=== PATIENT | male | born 1965 | race Caucasian/White ===

== ENCOUNTER 2019-01-11 06:29 | Emergency (ER) | payer BC ==
[2019-01-11] MEDS ORDERED: Ketorolac INJ* 60 MG/2 ML VIAL IM ONE (06:57)
--- NOTE | 2019-01-11 07:04 | ED ---
Back Pain - HPI Summary HPI Summary: Pt. is a 53 y.o male who presents to the ER for left sided low back pain x several days. 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 Pt. states a few days ago he slipped and pulled low back. He denies falling to ground at that time. Pt. states the next day he was lifting heavy bags and back pain became worse. Pain is located to left low back. He denies radicular pain, numbness, tingling, weakness, urinary sxs, CP, SOB, bowel or bladder incontinence or retention. Pt. states he took tylenol last night. Sxs are mild in severity. Movement makes sxs worse. Nothing makes sxs better. - History of Current Complaint Chief Complaint: EDBackInjuryPain Stated Complaint: BACK PAIN Time Seen by Provider: 01/11/19 06:39 Hx Obtained From: Patient Pain Intensity: 10 - Allergies/Home Medications Allergies/Adverse Reactions: Allergies Allergy/AdvReac Type Severity Reaction Status Date / Time No Known Allergies Allergy Verified 01/11/19 06:41 PMH/Surg Hx/FS Hx/Imm Hx Previously Healthy: Yes Endocrine/Hematology History: Reports: Hx Diabetes - Type 2 Denies: Hx Thyroid Disease Cardiovascular History: Reports: Hx Hypertension Denies: Hx Pacemaker/ICD Respiratory History: Denies: Hx Asthma, Hx Chronic Obstructive Pulmonary Disease (COPD) GI History: Denies: Hx Ulcer Sensory History: Denies: Hx Hearing Aid Psychiatric History: Denies: Hx Panic Disorder - Surgical History Surgery Procedure, Year, and Place: hernia in 1997 Infectious Disease History: No Infectious Disease History: Denies: Hx Clostridium Difficile, Hx Hepatitis, Hx Human Immunodeficiency Virus (HIV), Hx of Known/Suspected MRSA, Hx Shingles, Hx Tuberculosis, Hx Known/ Suspected VRE, Hx Known/Suspected VRSA, History Other Infectious Disease, Traveled Outside the [place] in Last 30 Days - Family History Known Family History: Positive: Hypertension, Diabetes - Social History Occupation: Employed Full-time Lives: With Family Alcohol Use: Rare Substance Use Type: Reports: None Smoking Status (MU): Never Smoked Tobacco Review of Systems Constitutional: Negative Cardiovascular: Negative Respiratory: Negative Gastrointestinal: Negative Genitourinary: Negative Positive: Other - left low back pain Neurological: Negative All Other Systems Reviewed And Are Negative: Yes Physical Exam Triage Information Reviewed: Yes Vital Signs On Initial Exam: Initial Vitals Pulse Pulse Ox 107 96 01/11/19 06:36 01/11/19 06:36 Vital Signs Reviewed: Yes Appearance: Positive: Pain Distress - Pt. sitting on side of bed appears uncomfortable but nontoxic. Tearful at times. Skin: Positive: Warm, Dry Head/Face: Positive: Normal Head/Face Inspection Eyes: Positive: Normal, EOMI Neck: Positive: Supple Respiratory/Lung Sounds: Positive: Clear to Auscultation Cardiovascular: Positive: Normal, RRR Musculoskeletal: Positive: Other - 5/5 strength in bilateral LEs. No CVA tenderness. Pain just above left SI joint. No midline tenderness. Neurological: Positive: Normal, CN Intact II-III Diagnostics - Vital Signs Vital Signs Temp Pulse Resp BP Pulse Ox 01/11/19 06:37 97.4 F 106 22 167/102 93 01/11/19 06:36 107 96 - Laboratory Lab Statement: Any lab studies that have been ordered have been reviewed, and results considered in the medical decision making process. Back Pain Course/Dx - Course Course Of Treatment: Pt. presenting for low back pain after a slip and heavy lifting. He has no neuro deficits on exam or evidence of cauda equina sxs. Afebrile. BP elevated--pt. states he did not take his meds yet today. No midine pain or radicular sxs, no imaging ordered. Suspect muscular in nature. Pt. given a dose of toradol in ED. Rx for flexeril and naproxen. Advised to apply warm compress, gentle stretching and massage. Avoid heavy lifting. Close f.u with PCP and return to eR if sxs change or worsen. PT understands and agrees with plan. - Diagnoses Differential Diagnosis/HQI/PQRI: Positive: Arthritis, Herniated Disc, Osteomyelitis, Renal Colic, Strain, Sprain Provider Diagnoses: Muscle spasm, Lumbar strain Discharge - Sign-Out/Discharge Documenting (check all that apply): Patient Departure Patient Received Moderate/Deep Sedation with Procedure: No - Discharge Plan Condition: Good Disposition: HOME Prescriptions: Cyclobenzaprine TAB* [Flexeril 10 MG TAB*] 10 mg PO TID PRN #12 tab PRN Reason: Pain Naproxen [Naproxen 500 mg tab] 500 mg PO BID #20 tablet Patient Education Materials: Low Back Strain (ED), Muscle Spasm (ED) Forms: *Work Release Referrals: Gentry Hadley MD [Primary Care Provider] - Additional Instructions: Schedule a close follow up appointment with your PCP Take medication as directed Apply warm compresses to back Gentle massage and stretching Avoid heavy lifting Take all of your scheduled morning medications as soon as your return home Return to ER if symptoms change or worsen - Billing Disposition and Condition Condition: GOOD Disposition: Home
[2019-01-11 07:27] VITALS: BP 142/102
== END 2019-01-11 07:27 | disposition home or self-care (01) ==
LOC: ED 06:29
DX: M62.830 Muscle spasm of back (principal); S39.012A Strain of muscle, fascia and tendon of lower back, initial encounter; W18.40XA Slipping, tripping and stumbling without falling, unspecified, initial encounter; Y92.9 Unspecified place or not applicable
CPT/HCPCS: 96372; 99282; J1885

== ENCOUNTER 2019-04-15 14:47 | Emergency (ER) | payer BC ==
[2019-04-15 15:33] VITALS: BP 172/97
--- NOTE | 2019-04-15 17:11 | UC ---
Dental HPI - HPI Summary HPI Summary: 53 y/o male presents to the urgent care c/o dental pain and mild swelling in his upper jaw since 04/10/2019. He has appt w/ his dentist next week to have them pull out. Pt w/ PMHX of DM type II. Pain is 7/10 sharp w/ chewing. He has been taken Ibudone PO which she takes for her Chronic back pain to alleviate symptoms. Pt denies fever, trismus, SULLIVAN, dizziness, sore throat, abdominal pain, N/V/D, SOB, chest pain. - History of Current Complaint Chief Complaint: UCDentalProblem Stated Complaint: DENTAL PAIN Time Seen by Provider: 04/15/19 16:47 Hx Obtained From: Patient Onset/Duration: Gradual Onset, Lasting Days - 6 days, Still Present Severity: Moderate Pain Intensity: 7 Pain Scale Used: 0-10 Numeric Aggravating Factor(s): Chewing Alleviating Factor(s): Other (see comments) - Ibudone Related History: Swelling - mild on Rt upper jaw - Allergies/Home Medications Allergies/Adverse Reactions: Allergies Allergy/AdvReac Type Severity Reaction Status Date / Time No Known Allergies Allergy Verified 04/15/19 15:33 PMH/Surg Hx/FS Hx/Imm Hx Previously Healthy: Yes Endocrine History: Diabetes Cardiovascular History: Hypertension - Surgical History Surgical History: Yes Surgery Procedure, Year, and Place: hernia in 1997 - Family History Known Family History: Positive: Hypertension, Diabetes - Social History Occupation: Employed Full-time Lives: With Family Alcohol Use: Rare Substance Use Type: None Smoking Status (MU): Never Smoked Tobacco - Immunization History Most Recent Influenza Vaccination: season Review of Systems All Other Systems Reviewed And Are Negative: Yes Constitutional: Positive: Negative Skin: Positive: Negative Eyes: Positive: Negative ENT: Positive: Dental Pain - upper jaw Respiratory: Positive: Negative Cardiovascular: Positive: Negative Gastrointestinal: Positive: Negative Genitourinary: Positive: Negative Motor: Positive: Negative Neurovascular: Positive: Negative Musculoskeletal: Positive: Negative Neurological: Positive: Negative Psychological: Positive: Negative Is Patient Immunocompromised?: No Physical Exam - Summary Physical Exam Summary: Vital Signs Reviewed: Yes General: Well-Appearing, Well-Nourished male sitting in the examining table w/ o any respiratory or pain distress Eyes: Positive: Conjunctiva Clear - PERRLA, EOMI, ENT: Positive: Normal ENT inspection, Hearing grossly normal, Pharynx normal, TMs normal - B/L external ear canals clear,. Negative: Tonsillar swelling, Tonsillar exudate, Trismus Dental: Positive: Gross Decay/Caries on molars #12-13 w/ gingival swelling and erythema, tender to percussion. involves tissue surrounding theses molars, w/ positive anterior Cervical Lymphadenopathy. Neck: Positive: Supple Respiratory: Positive: Chest non-tender, Lungs clear, Normal breath sounds, No respiratory distress Cardiovascular: Positive: RRR, No Murmur, Pulses Normal, Brisk Capillary Refill Abdomen Description: Positive: Nontender, No Organomegaly, Soft. Negative: CVA Tenderness (R), CVA Tenderness (L) Bowel Sounds: Positive: Present Musculoskeletal: Positive: Strength Intact, ROM Intact, No Edema Neurological Exam: Normal Psychological Exam: Normal Skin Exam: Normal Triage Information Reviewed: Yes Vital Signs: Initial Vital Signs Temp 98.3 F 04/15/19 15:27 Pulse 97 04/15/19 15:27 Resp 16 04/15/19 15:27 BP 172/97 04/15/19 15:27 Pulse Ox 97 04/15/19 15:27 Dental Complaint Course/Dx - Course Course Of Treatment: 53 y/o male presents to the urgent care c/o dental pain and mild swelling in her upper jaw since 04/10/2019. He has appt w/ his dentist next week to have them pull out. Pt w/ PMHX of DM type II. Pain is 7/10 sharp w/ chewing. He has been taken Ibudone PO which she takes for her Chronic back pain to alleviate symptoms. Pt denies fever, trismus, SULLIVAN, dizziness, sore throat, abdominal pain, N/V/D, SOB, chest pain. Pt with dental abscess on RT side upper jaw examination. Pt Rx Amoxicillin PO and advised to continue taking Ibudone PO for pain. Pt strongly advised to f/u with Dentist as soon as possible further evaluation and treatment. Pt's BP is elevated today advised to decrease salt in diet, monitor BP and f/u with PCP for further management. Pt understood and agreed with plan of care. Left the clinic ambulating. - Differential Dx/Diagnosis Differential Diagnosis/Dx: Dental Abscess, Dental Caries Provider Diagnosis: Dental abscess, Dental caries, Uncontrolled hypertension Discharge - Sign-Out/Discharge Documenting (check all that apply): Patient Departure - d/C home All imaging exams completed and their final reports reviewed: No Studies - Discharge Plan Condition: Stable Disposition: HOME Prescriptions: Amoxicillin PO (*) [Amoxicillin 500 MG CAP*] 500 mg PO TID #30 cap Patient Education Materials: Dental Abscess (ED), Low-Sodium Diet (ED) Referrals: Gentry Hadley MD [Primary Care Provider] - 2 Days Additional Instructions: 1-Please take full course of antibiotic to avoid resistance. Take yogurts w/ probiotics or Cuturelle to protect your GI system 2- Continue taken Ibudone PO after meals to alleviate pain . 3- F/u with your Dentist or Dental List provided as soon as possible for further treatment. 4- If symptoms do not improve or worsen please f/u with your PCP in 2-3 days for further evaluation and treatment 5-Your BP is elevated today. Please take your BP medications and decrease salt in your diet, monitor BP and if it continues to be elevated please f/u with your PCP for further management. If you develop chest pain, dizziness, visual disturbances, SOB, or severe SULLIVAN please go immediately to the ER for further management - Billing Disposition and Condition Condition: STABLE Disposition: Home
== END 2019-04-15 17:23 | disposition home or self-care (01) ==
LOC: UCEAST 14:47
DX: K04.7 Periapical abscess without sinus (principal); K02.9 Dental caries, unspecified; I10 Essential (primary) hypertension
CPT/HCPCS: 99212; G0463

== ENCOUNTER 2019-11-25 15:24 | Emergency (ER) | payer BC ==
--- NOTE | 2019-11-25 17:42 | UC ---
Lower Extremity/Ankle HPI - HPI Summary HPI Summary: 54-year-old male comes in with a chief complaint of right heel pain. It started about a month ago. Pains right at the posterior aspect of the heel with the Achilles insertion. Pains worse with plantar flexion and dorsiflexion. No loss of strength or range of motion. Patient does have diabetes and he does have decreased sensation chronically on his feet. Patient has not taken any nonsteroidal anti-inflammatories. He has a history of GERD. He is not on any antacid medicines. - History of Current Complaint Chief Complaint: UCLowerExtremity Stated Complaint: FOOT PAIN Time Seen by Provider: 11/25/19 17:40 Pain Intensity: 8 - Allergies/Home Medications Allergies/Adverse Reactions: Allergies Allergy/AdvReac Type Severity Reaction Status Date / Time No Known Allergies Allergy Verified 11/25/19 16:00 Home Medications: Home Medications Dulaglutide [Trulicity] 0.75 mg SQ WEEKLY 11/25/19 [History Confirmed 11/25/19] PMH/Surg Hx/FS Hx/Imm Hx Previously Healthy: Yes Endocrine History: Diabetes Cardiovascular History: Hypertension GI/ History: Gastroesophageal Reflux - Surgical History Surgical History: Yes Surgery Procedure, Year, and Place: hernia in 1997 - Family History Known Family History: Positive: Hypertension, Diabetes - Social History Alcohol Use: Occasionally Substance Use Type: Marijuana Substance Use Comment - Amount & Last Used: daily Smoking Status (MU): Never Smoked Tobacco - Immunization History Most Recent Influenza Vaccination: season Review of Systems All Other Systems Reviewed And Are Negative: Yes Constitutional: Positive: Negative Skin: Positive: Negative Eyes: Positive: Negative ENT: Positive: Negative Respiratory: Positive: Negative Cardiovascular: Positive: Negative Gastrointestinal: Positive: Negative Motor: Positive: Negative Neurovascular: Positive: Negative Musculoskeletal: Positive: Other: - SEE HPI Neurological: Positive: Negative Psychological: Positive: Negative Is Patient Immunocompromised?: No Physical Exam Triage Information Reviewed: Yes Appearance: Well-Appearing, No Pain Distress, Well-Nourished Vital Signs: Initial Vital Signs Temp 98.1 F 11/25/19 15:55 Pulse 83 11/25/19 15:55 Resp 18 11/25/19 15:55 BP 191/93 11/25/19 15:55 Pulse Ox 98 11/25/19 15:55 Vital Signs Reviewed: Yes Eye Exam: Normal Eyes: Positive: Conjunctiva Clear Neck: Positive: Supple Respiratory: Positive: No respiratory distress Musculoskeletal: Positive: Other: - Right ankle is tender to palpation at the Achilles inserts of the calcaneus. Is nontender over the malleoli. Normal capillary refill. Normal dorsalis pedis posterior tibial pulses. Patient does report decrease generalized sensation of the foot which he reports is chronic. Patient has full range of motion of the ankle with full strength to include plantarflexion and dorsiflexion. Neurological: Positive: Alert Psychological: Positive: Age Appropriate Behavior Skin Exam: Normal Lower Extremity Course/Dx - Course Course Of Treatment: Rubber Cutter: Jean Pierre Lehman Daniel ([id number]) Forest Fire Prevention Manager: PEYTON ( NUANCE) Report Date: 11/25/2019 17:12:00 Report Status: Final ====== Start of Report Content Patient Name: SHAYLA DAVIS Medical Record#: [id number] Ordering Physician: Wayne Jonas MD Acct.#: [id number] : Age: 54 Sex: M Location: [facility] Exam Date: 11/25/19 1649 ADM Status: REG ER Order Information: ANKLE RIGHT 3+VWS Accession Number: [id number] CPT: 80913 HISTORY: PAIN . COMPARISONS: October 31, 2018 VIEWS: 3, Frontal, lateral, and oblique views of the right ankle FINDINGS: BONE DENSITY: Normal. BONES: There is no displaced fracture. Again noted are large plantar and posterior calcaneal enthesophytes. JOINTS: There is osteoarthritis of the midfoot. There is osteoarthritis of the tibiotalar and fibulotalar articulation. ALIGNMENT: There is no dislocation. SOFT TISSUES: There is peripheral arterial calcification. OTHER FINDINGS: None. IMPRESSION: HEEL SPURS. OSTEOARTHRITIS. PERIPHERAL ARTERIAL DISEASE. NO ACUTE OSSEOUS INJURY. IF SYMPTOMS PERSIST, RECOMMEND REPEAT IMAGING. <Electronically signed by Jean Pierre Lehman MD in OV > 11/25/191708 Dictated By: Jean Pierre Lehman MD Dictated Date/Time: 1707 Transcribed Date/Time: 11/25/191707 Copy to: CC:Gentry Hadley MD; [facility]; Wayne Jonas MD Imaging - [facility] Imaging - [facility] Imaging - [facility] [address] [address] ph [phone]) ph ([phone]) ph ([phone]) End of Report Content I discussed the x-rays with the patient. The x-ray and the exam is consistent with Achilles tendinitis. The Achilles tendon is intact to exam. In clinic patient placed and a cam boot by nursing patient and her vascular intact after placement. He will ice it's about to start him on an antacid medicine and also naproxen and he's got a follow-up with either sports medicine or orthopedics. - Differential Dx/Diagnosis Provider Diagnosis: Achilles tendinitis, right leg, GERD (gastroesophageal reflux disease) Discharge ED - Sign-Out/Discharge Documenting (check all that apply): Patient Departure All imaging exams completed and their final reports reviewed: Yes - Discharge Plan Condition: Stable Disposition: HOME Prescriptions: Naproxen Sodium [Naproxen ER 500 MG TAB] 500 mg PO BID #20 tab Omeprazole CAP (NF) [Prilosec CAP* 20 MG] 20 mg PO BID #30 mirna. Patient Education Materials: Achilles Tendinitis (ED), Gastroesophageal Reflux Disease (ED) Forms: *Work Release Referrals: Gentry Hadley MD [Primary Care Provider] - Ace Sears MD [Medical Doctor] - [facility] [Provider Group] Additional Instructions: FOLLOW UP WITH ORTHOPEDICS OR SPORTS MEDICINE. GET REEVALUATED SOONER IF NOT IMPROVED OR WORSE OR ANY QUESTIONS OR CONCERNS. - Billing Disposition and Condition Condition: STABLE Disposition: Home
[2019-11-25 18:24] VITALS: BP 165/100
== END 2019-11-25 18:13 | disposition home or self-care (01) ==
LOC: UCEAST 15:24
DX: M76.61 Achilles tendinitis, right leg (principal); K21.9 Gastro-esophageal reflux disease without esophagitis; M77.31 Calcaneal spur, right foot; M19.071 Primary osteoarthritis, right ankle and foot; I73.9 Peripheral vascular disease, unspecified; E11.9 Type 2 diabetes mellitus without complications; I10 Essential (primary) hypertension; Z79.899 Other long term (current) drug therapy
CPT/HCPCS: 99213; G0463

== ENCOUNTER 2019-12-10 15:56 | Emergency (ER) | payer BC ==
--- NOTE | 2019-12-10 16:24 | ED ---
HPI Chest Pain - HPI Summary HPI Summary: The patient is a 54 y/o male presenting to [facility] with a chief complaint of intermittent episodes of left anterior CP one week ago. He reports that he had experience an episode of stabbing pain in the left chest, most prevalent on . The night before, he felt like he was becoming ill with cold symptoms. He recently had an EKG revealing new RBBB. He has been seeing a business machine mechanic Dr. Valverde, who he has not been able to follow up with yet, but he had previously been seen for cardiac workup with negative results. He states that he feels well now without CP. He denies any cough. PMHx: DM, HTN. FHx: [place] in father age 52. Nonsmoker, occasional EtOH, marijuana use. Medications reviewed. Allergies noted. - History of Current Complaint Chief Complaint: EDChestPainROMI Time Seen by Provider: 12/10/19 16:08 Hx Obtained From: Patient Onset/Duration: Started Days Ago Timing: Intermittent - now resolved Initial Severity: Moderate Current Severity: None Pain Intensity: 0 Pain Scale Used: 0-10 Numeric Chest Pain Location: Left Anterior Chest Pain Radiates: No Character: Sharp/Stabbing Aggravating Factor(s): Nothing Alleviating Factor(s): Nothing Associated Signs and Symptoms: Positive: Chest Pain. Negative: Cough - Allergy/Home Medications Allergies/Adverse Reactions: Allergies Allergy/AdvReac Type Severity Reaction Status Date / Time No Known Allergies Allergy Verified 12/10/19 16:18 Home Medications: Home Medications Dulaglutide (NF) [Trulicity (NF)] 0.75 mg SUBCUT WEEKLY 12/10/19 [History Confirmed 12/10/19] Hydrocodone/Ibuprofen 1 tab PO QID PRN 12/10/19 [History Confirmed 12/10/19] Metformin ER (NF) 1,000 mg PO BID 12/10/19 [History Confirmed 12/10/19] Naproxen TAB* [Naprosyn 250 mg TAB*] 500 mg PO BID 12/10/19 [History Confirmed 12/10/19] dilTIAZem HCl [Dilt-Xr] 240 mg PO BEDTIME 12/10/19 [History Confirmed 12/10/19] glipiZIDE TAB.XL* [Glucotrol XL*] 10 mg PO BID 12/10/19 [History Confirmed 12/10] PMH/Surg Hx/FS Hx/Imm Hx Endocrine/Hematology History: Reports: Hx Diabetes - Type 2 Denies: Hx Thyroid Disease Cardiovascular History: Reports: Hx Hypertension Denies: Hx Pacemaker/ICD Respiratory History: Denies: Hx Asthma, Hx Chronic Obstructive Pulmonary Disease (COPD) GI History: Denies: Hx Ulcer Sensory History: Denies: Hx Hearing Aid Psychiatric History: Denies: Hx Panic Disorder - Surgical History Surgical History: Yes Surgery Procedure, Year, and Place: hernia in 1997 Infectious Disease History: No Infectious Disease History: Denies: Hx Clostridium Difficile, Hx Hepatitis, Hx Human Immunodeficiency Virus (HIV), Hx of Known/Suspected MRSA, Hx Shingles, Hx Tuberculosis, Hx Known/ Suspected VRE, Hx Known/Suspected VRSA, History Other Infectious Disease, Traveled Outside the [place] in Last 30 Days - Family History Known Family History: Positive: Cardiac Disease - father [place] age 52, Hypertension , Diabetes - Social History Alcohol Use: Occasionally Hx Substance Use: Yes Substance Use Type: Reports: Marijuana Substance Use Comment - Amount & Last Used: daily Hx Tobacco Use: No Smoking Status (MU): Never Smoked Tobacco Review of Systems Positive: Chest Pain - stabbing left anterior Negative: Cough All Other Systems Reviewed And Are Negative: Yes Physical Exam - Summary Physical Exam Summary: Constitutional: Well-developed, Obese, Alert. (-) Distressed Skin: Warm, Dry HENT: Normocephalic; Atraumatic Eyes: Conjunctiva normal Neck: Musculoskeletal ROM normal neck. (-) JVD, (-) Stridor, (-) Nuchal rigidity Cardio: Rhythm regular, rate normal, Heart sounds normal; Intact distal pulses; Radial pulses are 2+ and symmetric. (-) Murmur Pulmonary/Chest wall: Effort normal. (-) Respiratory distress, (-) Wheezes, (-) Rales Abd: Soft, (-) tenderness, (-) Distension, (-) Guarding, (-) Rebound Musculoskeletal: (-) Edema Lymph: (-) Cervical adenopathy Neuro: Alert, Oriented x3 Psych: Mood and affect Normal Triage Information Reviewed: Yes Vital Signs On Initial Exam: Initial Vitals Temp Pulse Resp BP Pulse Ox 98.3 F 92 18 213/89 99 12/10/19 16:04 12/10/19 16:04 12/10/19 16:04 12/10/19 16:04 12/10/19 16:04 Vital Signs Reviewed: Yes Procedures - Sedation Patient Received Moderate/Deep Sedation with Procedure: No Diagnostics - Vital Signs Vital Signs Temp Pulse Resp BP Pulse Ox 12/10/19 16:07 98.2 F 95 20 168/102 94 12/10/19 16:04 98.3 F 92 18 213/89 99 - Laboratory Result Diagrams: 12/10/19 16:16 12/10/19 16:16 Lab Statement: Any lab studies that have been ordered have been reviewed, and results considered in the medical decision making process. - Radiology CXR Radiology Interpretation Completed By: ED Physician Summary of Radiographic Findings: No acute abnormality. ED physician has reviewed and interpreted this report. Pending official read. - EKG 1557 Cardiac Rate: NL - 90 BPM EKG Rhythm: Sinus Rhythm EKG Comparison: No Significant Change - Compared to prior in 2007, new RBBB. Summary of EKG Findings: An EKG at 1557 reveals normal sinus rhythm at 90 BPM, RBBB. Compared to prior in 2007, new RBBB. ED physician has reviewed and interpreted this EKG. Re-Evaluation - Re-Evaluation First Eval Re-Evaluation Time: 17:45 Change: Improved - no recurrent chest pain, troponin negative Chest Pain Course/Dx - Course Course Of Treatment: 54-year-old male with a history of diabetes presenting with episode of chest pain now resolved. - Reporting URI-like symptoms, no cough. Chest x-ray w/o acute infiltrate. Labs with mild leukocytosis. Chest Pain DDX: The patient is well appearing, with stable vitals. Given the patient 's clinical presentation, highest on differential is atypical CP. Although less likely, differential also includes the following: --ACS: The initial EKG shows no ischemic changes, does have new RBBB since prior. The initial troponin is not elevated. Based on a HEART score of 3 the patient has a low risk (<2% chance) of major adverse cardiac event within the next 6 weeks. I explained to the patient that based on the work-up today, her risk of heart attack is low and that he/she will be discharged with outpatient follow-up. Strict return precautions were discussed regarding worsening chest pain, new / atypical pain, shortness of breath, or any other serious concerns. Patient endorsed understanding and has no questions at this time. --Pneumothorax: Equal breath sounds, story inconsistent since gradual onset of symptoms. CXR shows no evidence of pneumothorax. Unlikely. --Cardiac tamponade: The history and physical are not concerning for tamponade. No Pulsus Paradoxus, no tachypnea. Unlikely. --Mediastinitis or esophageal rupture: The history is not consistent , as the patient has had no recent history of significant wretching, instrumentation, or mediastinal surgeries. Unlikely. --Aortic dissection: The patient does not describe the classical tearing chest pain radiating into the back, and the CXR does not show mediastinal widening or other signs of aortic dissection. Unlikely. - Diagnoses Provider Diagnoses: Chest pain, RBBB Discharge ED - Sign-Out/Discharge Documenting (check all that apply): Patient Departure - Discharge Plan Condition: Stable Disposition: HOME Patient Education Materials: Chest Pain (ED) Referrals: Gentry Hadley MD [Primary Care Provider] - Additional Instructions: You were seen in the emergency department for chest pain. Your EKG (heart tracing), labs and chest x-ray did not show any cause for pain. Important that you follow up with you primary care doctor in the next 1-2 days to help schedule an outpatient stress test. Please return to the emergency department for continued chest pain, trouble breathing, passing out, or if you're concerned. . - Billing Disposition and Condition Condition: STABLE Disposition: Home - Attestation Statements Document Initiated by Kranthi: Yes Documenting Scribe: Sarah Donovan Provider For Whom Kranthi is Documenting (Include Credential): Dr. Philip Noriega MD Scribe Attestation: I, Sarah Donovan scribed for Dr. Philip Noriega MD on 12/10/19 at 1752. Scribe Documentation Reviewed: Yes Provider Attestation: The documentation as recorded by the Sarah vazquez accurately reflects the service I personally performed and the decisions made by me, Dr. Philip Noriega MD Status of Kranthi Document: Viewed
[2019-12-10 16:25] LABS: Hematocrit 39 % (42-52); Hemoglobin 13.6 g/dL (14.0-18.0); Mean Corpuscular HGB Conc 35 g/dL (31-36); Mean Corpuscular Hemoglobin 28 pg (27-31); Mean Corpuscular Volume 82 fL (80-94); Mean Platelet Volume 7.9 fL (7.4-10.4); Platelet Count 284 10^3/uL (150-450); Red Blood Count 4.83 10^6 /uL (4.18-5.48); Red Cell Distribution Width 14 % (10-15); White Blood Count 13.7 10^3/uL (3.5-10.8)
[2019-12-10 16:29] LABS: ABS Basophils 0.1 10^3/ul (0-0.2); ABS Eosinophils 0.1 10^3/ul (0-0.6); ABS Lymphocytes 3.5 10^3/ul (1.0-4.8); ABS Monocytes 0.8 10^3/ul (0-0.8); ABS Neutrophils 9.2 10^3/ul (1.5-7.7); Lymphocyte % 25.3 %; Nucleated Red Blood Cells % 0.1
[2019-12-10 16:45] LABS: Albumin 4.2 g/dL (3.2-5.2); Albumin/Globulin Ratio 1.4 (1-3); BUN/Creatinine Ratio 28.8 (8-20); Calcium 9.2 mg/dL (8.6-10.3); EGFR African American 89.4 (>60); EGFR Non-African American 73.9 (>60); Globulin 3.1 g/dL (2-4); Potassium 4.8 mmol/L (3.5-5.0); Total Bilirubin 0.4 mg/dL (0.2-1.0); Total Protein 7.3 g/dL (6.4-8.9); Troponin I 0.01 ng/mL (<0.03)
[2019-12-10 16:49] LABS: INR 1.02 (0.82-1.09)
[2019-12-10 16:54] LABS: Magnesium 1.9 mg/dL (1.9-2.7)
--- OUTSIDE RECORDS SUMMARY | 2019-12-10 17:16 | XMS REPORT | Continuity of Care Document ---
:1965 External Reference #:[id number] Author Name Erna Valdes Address [address] [place] [address] Care Team Providers Name Role Phone Gentry Hadley - Family Medicine Care Team Information Custom Tailor Apprentice [phone] [place] - Surgery Care Team Information Custom Tailor Apprentice [phone] [facility] - Sleep Disorder Care Team Information Custom Tailor Apprentice Diagnostic Joao Bustos - Surgery Care Team Information Custom Tailor Apprentice [phone] Stephanie Tim MD - Orthopaedic Care Team Information Custom Tailor Apprentice Surgery Problems Active Problems Provider Date Edema Gentry Hadley M.D. Onset: 02/19/2006 Benign essential hypertension Gentry Hadley M.D. Onset: 02/19/2006 Sleep apnea Gentry Hadley M.D. Onset: 02/19/2006 Cramp in limb Gentry Hadley M.D. Onset: 11/06/2007 Hyperlipidemia Gentry Hadley M.D. Onset: 12/23/2007 Type 2 diabetes mellitus Gentry Hadley M.D. Onset: 12/23/2007 Obesity Gentry Hadley M.D. Onset: 11/29/2010 Depressive disorder Gentry Hadley M.D. Onset: 09/04/2011 Skin sensation disturbance Gentry Hadley M.D. Onset: 09/04/2011 H/O: sexual function problem Gentry Hadley M.D. Onset: 03/19/2012 Anxiety state Gentry Hadley M.D. Onset: 03/19/2012 Disorder of oral soft tissues Gentry Hadley M.D. Onset: 09/20/2012 Lymphadenopathy Gentry Hadley M.D. Onset: 11/18/2012 Acute upper respiratory infection Gentry Hadley M.D. Onset: 11/18/2012 Low back pain Gentry Hadley M.D. Onset: 08/11/2013 Disorder of skin and/or subcutaneous tissue Gentry Hadley M.D. Onset: 03/12 Adult health examination Gentry Hadley M.D. Onset: 07/03/2014 Arthralgia of the lower leg Gentry Hadley M.D. Onset: 07/03/2014 Hematuria syndrome Gentry Hadley M.D. Onset: 07/28/2014 Essential hypertension Gentry Hadley M.D. Onset: 09/10/2015 Knee pain Gentry Hadley M.D. Onset: 09/10/2015 Bronchitis Gentry Hadley M.D. Onset: 09/10/2015 Benign neoplasm of scrotum Gentry Hadley M.D. Onset: 06/02/2016 Psychophysiologic insomnia Gentry Hadley M.D. Onset: 11/17/2016 Diarrhea Gentry Hadley M.D. Onset: 05/28/2017 Morbid obesity Gentry Hadley M.D. Onset: 12/10/2017 Cellulitis of left lower limb Gentry Hadley M.D. Onset: 06/10/2018 Social History Type Date Description Comments Sex Unknown Tobacco Use Start: Unknown Nonsmoker ETOH Use Rare Tobacco Use Start: Unknown Patient has never smoked Smoking Status Reviewed: 10/14/18 Patient has never smoked Allergies, Adverse Reactions, Alerts Active Allergies Reaction Severity Comments Date NKDA 07/03/2011 Inactive Allergies Nkma 07/01/2004 Medications Active Medications SIG Qnty Indications Ordering Date Provider Guerda inject one dose 2ml E11.9 Gentry Hadley, 09/01/2019 weekly M.DMaxx 0.75mg/0.5ML Solution Pen-Inject Cpap Mask and supplies dx: One G47.33 Gentry Hadley, 04/28/2019 obstructive sleep M.D. apnea Glipizide ER take two tablet by 120tabs Gentry Hadley, 04/09/2019 5mg mouth twice daily M.D. Tablets ER 24HR Dilt-XR Take 1 capsule by 30caps Gentry Hadley, 03/13/2019 240mg Caps mouth every day M.D. ER 24HR Hydrocodone-Ibuprof 1 four times a day 120tabs Gentry Hadley, 01/24/2016 en as needed M.D. 10-200mg Tablets Lisinopril-Hydrochl take one tablet by 30tabs Gentry Hadley, 11/04/2014 orothiazide mouth every day M.D. 20-25mg Tablets Metformin HCL ER take two tablets by 120tabs Gentry Hadley, 09/16/2008 mouth twice daily M.D. 500mg Tablets ER 24HR Immunizations CPT Code Status Date Vaccine Lot # [id number] Given 12/10/2017 Tdap Tetanus, W Pertussis TF422 Vital Signs Date Vital Result Comment 12/10/2019 2:57pm BP Systolic 179 mmHg BP Diastolic 78 mmHg Heart Rate 100 /min Body Temperature 98.9 F Respiratory Rate 20 /min Weight 372.12 lb shoes on 09/01/2019 7:56am BP Systolic 160 mmHg BP Diastolic 90 mmHg Heart Rate 72 /min Body Temperature 98.4 F Respiratory Rate 16 /min Weight 365.00 lb Results Test Acquired Date Facility Test Result H/L Range Note Laboratory test 09/01/2019 [facility] Hemoglobin A1c 8.2 % High 4.1- 5.7 finding (607)- - (Fma) Procedures Date Code Description Status 12/10/2019 37403 Electrocardiogram Complete Completed 09/01/2019 18107 Finger Or Heel Stick Completed 09/09/2018 [id number] Diabetic Retinal Eye Exam Completed Medical Devices Description No Information Available Encounters Type Date Location Provider Dx Diagnosis Office Visit 09/01/2019 Main Office Gentry Hadley, I10 Essential (primary ) 8:00a M.D. hypertension E11.9 Type 2 diabetes mellitus without complications E66.01 Morbid (severe) obesity due to excess calories R60.0 Localized edema Assessments Date Code Description Provider 12/10/2019 R07.9 Chest pain, unspecified Erna Valdes 09/01/2019 I10 Essential (primary) hypertension Gentry Hadley M.D. 09/01/2019 E11.9 Type 2 diabetes mellitus without Gentry Hadley M.D. complications 09/01/2019 E66.01 Morbid (severe) obesity due to excess Gentry Hadley M.D. calories 09/01/2019 R60.0 Localized edema Gentry Hadley M.D. Plan of Treatment Future Appointment(s):12/19/2019 8:00 am - Gentry Hadley M.D. at Main [id number]/10/2019 - Louise Woo, Debbie-CR07.9 Chest pain, unspecifiedFollow up:Followup:. (Follow up)AllComments:Medication Management Patient Understands medications he's taking? Yes No Are there Barriersto Adherence? Yes No Has the patient been asked about herbal supplements and therapies, and OTC meds? Yes No Care Plan1. Patient has been queried about patient's goals/preferences and functional/lifestyle goals at relevant visits. If relevant, describe: na2. Treatment goals asexplained to the patient: abovefurther evaluation 3. Are there barriers to meeting treatment goals? Yes No If Yes, please describe:4. Self-Management goals as described to the patient: Yes No because of the ekg changes anf recent chest pain we advise er eval I can make your cardiology consult as well , but it is importantant that you get further eval today keep your pcp f/u Functional Status Description No Information Available Mental Status Description No Information Available Referrals Description No Information Available
[2019-12-10 18:34] VITALS: BP 136/80
== END 2019-12-10 18:34 | disposition home or self-care (01) ==
LOC: ED 15:56
DX: R07.89 Other chest pain (principal); I45.10 Unspecified right bundle-branch block; E11.9 Type 2 diabetes mellitus without complications; Z79.84 Long term (current) use of oral hypoglycemic drugs; I10 Essential (primary) hypertension
CPT/HCPCS: 36415; 71046; 80053; 83735; 84484; 85025; 85610; 93005; 99283

== ENCOUNTER 2019-12-16 15:11 | Emergency (ER) | payer BC, OTHER ==
[2019-12-16 15:26] VITALS: BP 156/119
--- NOTE | 2019-12-16 16:12 | UC ---
Lower Extremity/Ankle HPI - History of Current Complaint Chief Complaint: UCLowerExtremity Stated Complaint: RT ANKLE INJURY Time Seen by Provider: 12/16/19 16:03 Hx Obtained From: Patient Pain Intensity: 8 - Allergies/Home Medications Allergies/Adverse Reactions: Allergies Allergy/AdvReac Type Severity Reaction Status Date / Time No Known Allergies Allergy Verified 12/16/19 15:23 PMH/Surg Hx/FS Hx/Imm Hx - Surgical History Surgical History: Yes Surgery Procedure, Year, and Place: hernia in 1997 - Family History Known Family History: Positive: Cardiac Disease - father [place] age 52, Hypertension , Diabetes - Social History Alcohol Use: Occasionally Substance Use Type: None Substance Use Comment - Amount & Last Used: daily Smoking Status (MU): Never Smoked Tobacco - Immunization History Most Recent Influenza Vaccination: season Physical Exam Vital Signs: Initial Vital Signs Temp 97.9 F 12/16/19 15:18 Pulse 99 12/16/19 15:18 Resp 20 12/16/19 15:18 BP 156/119 12/16/19 15:18 Pulse Ox 95 12/16/19 15:18 Diagnostics - Radiology No standard instances Radiology Interpretation Completed By: Radiologist Summary of Radiographic Findings: Order Information: ANKLE RIGHT 3+VWS. HISTORY : PAIN S/P INJURY . COMPARISONS: June 07, 2020. VIEWS: 3, Frontal, lateral, and oblique views of the right ankle. FINDINGS: BONE DENSITY: Normal. BONES: There is no displaced fracture. There are posterior and plantar calcaneal enthesophytes. There has been superior displacement of the posterior calcaneal enthesophyte with associated soft tissue swelling compared to November 25, 2019 examination. JOINTS: There is no arthropathy. ALIGNMENT: There is no dislocation. SOFT TISSUES: There is peripheral arterial opacification. As noted above, there is soft tissue swelling at the insertion of the Achilles tendon. OTHER FINDINGS: None. IMPRESSION: THERE HAS BEEN SUPERIOR DISPLACEMENT OF CALCANEAL ENTHESOPHYTES AT THE ACHILLES TENDON INSERTION WITH ASSOCIATED SOFT TISSUE SWELLING, CONCERNING FOR ACHILLES TENDON INJURY Lower Extremity Course/Dx - Differential Dx/Diagnosis Differential Diagnosis/HQI/PQRI: Fracture (Closed), Sprain, Tendonitis Provider Diagnosis: Injury of right Achilles tendon Discharge ED - Sign-Out/Discharge Documenting (check all that apply): Patient Departure All imaging exams completed and their final reports reviewed: Yes - Discharge Plan Condition: Stable Disposition: HOME Patient Education Materials: Achilles Tendon Rupture (ED) Referrals: Gentry Hadley MD [Primary Care Provider] - Stephanie Tim MD [Medical Doctor] - 3 Days (Follow up in 3-5 days for futher evaluation and treatment. Call for appointment.) Additional Instructions: The x-ray performed in the clinic today showed evidence of displacement of the posterior calcaneal enthesophyte with associated soft tissue swelling that is concerning for an Achilles tendon injury. Rest the ankle as much as possible. You should remain non-weight bearing until seen by orthopedic surgery. Use the crutches you have at home for support. Use the CAM boot (walking boot) you have at home. You should wear at all times until you have been seen by orthopedic surgery. Apply ice to the affected area for 15-20 minutes at least 4 times a day to help with the pain and swelling. Elevate the leg to help reduce swelling. Take acetaminophen (Tylenol) or ibuprofen (Advil, Motrin) according to directions as needed for pain. Follow up with orthopedic surgery in 3-5 days if symptoms do not improve. Call for appointment. Seek immediate medical attention if you have severe pain not managed with pain medication, develop numbness or tingling in the foot or toes, or have any worsening of symptoms. - Billing Disposition and Condition Condition: STABLE Disposition: Home
== END 2019-12-16 16:35 | disposition home or self-care (01) ==
LOC: UCEAST 15:11
DX: S86.001A Unspecified injury of right Achilles tendon, initial encounter (principal); M77.31 Calcaneal spur, right foot; M79.89 Other specified soft tissue disorders; X58.XXXA Exposure to other specified factors, initial encounter; Y92.9 Unspecified place or not applicable
CPT/HCPCS: 99211; G0463

== ENCOUNTER 2024-01-06 13:45 | Inpatient (IN) ==
[2024-01-06 14:34] LABS: ABS Lymphocytes 0.6 10^3/uL (1.0-4.8); ABS Monocytes 1.1 10^3/uL (0.0-1.1); ABS Neutrophils 15.2 10^3/uL (1.5-7.6); ABS Nucleated RBC 0.01 10^3/ul; Hematocrit 39.6 % (38-53); Hemoglobin 13.5 g/dL (13.2-16.3); Lymphocyte % 3.5 %; Mean Corpuscular Hemoglobin 26.5 pg (27-33); Mean Corpuscular Volume 77.9 fL (80-97); Mean Platelet Volume 8.1 fL (7.5-11.2); Nucleated Red Blood Cells % 0.1 %/100WBC (0.0-0.8); Platelet Count 268 10^3/uL (150-450); Red Blood Count 5.08 10^6/uL (4.06-5.63); Red Cell Distribution Width 14.9 % (12-17)
[2024-01-06 14:47] LABS: INR 1.27 (0.83-1.13)
[2024-01-06 14:55] LABS: Albumin 3.6 g/dL (3.2-5.2); Albumin/Globulin Ratio 0.9 (1-3); Calcium 9.1 mg/dL (8.6-10.3); Creatinine, Serum 1.97 mg/dL (0.67-1.17); Total Bilirubin 1.2 mg/dL (0.2-1.0); Total Protein 7.6 g/dL (6.4-8.9); eGFR CKD-EPI 38.2 (>60)
[2024-01-06] MEDS: Acetaminophen IV 1 GM/100ML 1,000 MG/100 ML BAG IV ONE (15:04)
[2024-01-06] MEDS: Piperacillin/Tazobac 3.375 BAG 3.375 GM/100 ML BAG IV ONE (15:05)
[2024-01-06] MEDS: NS 0.9% 1000 ml BAG 1,000 ML IV ONE (15:05)
[2024-01-06 15:28] LABS: Venous Bicarbonate HCO3 21.7 mmol/L (24-28)
[2024-01-06 15:36] LABS: Urine Appearance Clear; Urine Bacteria Absent /HPF (Absent); Urine Bilirubin Negative (Negative); Urine Blood 3+ (Negative); Urine Color Light-Yellow; Urine Glucose 4+ (>=1000 mg/dL) (Negative); Urine Ketones 1+ (Negative); Urine Nitrite Negative (Negative); Urine Protein Trace (Negative); Urine Red Blood Cell Trace(0-2/hpf) /HPF (0-Trace); Urine Squamous Epithelial Cell Present /HPF (Absent); Urine Urobilinogen Negative (Negative); Urine White Blood Cell Trace(0-5/hpf) /HPF (0-Trace)
[2024-01-06 15:56] LABS: High Sensitivity Troponin 1 Hr 36 pg/mL (<20)
[2024-01-06 16:05] LABS: TSH Ultra Thyroid Stim Horm 1.14 mcIU/mL (0.34-5.60)
[2024-01-06 16:42] LABS: C Reactive Protein 304.7 mg/L (<8.01)
[2024-01-06] MEDS: Iodixanol (CONTRAST) 320 MG/ML 100 ML SDV IV ONE (16:45)
[2024-01-06] MEDS: Lactated Ringers 1000 ml BAG 1,000 ML IV SCH (17:17)
[2024-01-06 17:37] LABS: Erythrocyte Sed Rate 77 mm/Hr (0-19)
[2024-01-06] MEDS: Lactated Ringers 1000 ml BAG 1,000 ML IV ONE (18:37)
[2024-01-06 19:08] LABS: Osmolality Serum 316 mOsm/kg (275-295)
[2024-01-06 20:44] LABS: Calcium 8.3 mg/dL (8.6-10.3); Creatinine, Serum 1.71 mg/dL (0.67-1.17); Potassium 3.5 mmol/L (3.5-5.0); eGFR CKD-EPI 45.3 (>60)
[2024-01-06] MEDS ORDERED: Al Hydrox/Mg Hydrox/Simet LIQ 30 ML UDC PO PRN (21:26)
[2024-01-06] MEDS ORDERED: Dextrose 50% Syringe 50 ml 25 GM/50 ML SYRINGE IV PUSH PRN (22:29)
[2024-01-06] MEDS: Heparin 5000 UNITS/ML 1 mL VIAL SUBCUT SCH (23:57)
[2024-01-07] MEDS: Vancomycin 1,250 MG in NS 0.9% 250 ml 250 ML IVPB ONE (00:08)
[2024-01-07] MEDS: Lactated Ringers 1000 ml BAG 1,000 ML IV ONE ×3 (00:08→09:01)
[2024-01-07 00:35] LABS: Glucose Confirmatory 407 mg/dL (70-100)
[2024-01-07] MEDS: Metoprolol Tartrate 5 mg VIAL 5 ml VIAL (1 mg/ml) IV PRN (05:50)
[2024-01-07] MEDS ORDERED: Metoprolol Tartrate 5 mg VIAL 5 ml VIAL (1 mg/ml) ONE ×2 (05:51→05:59)
[2024-01-07 06:28] LABS: Hematocrit 33.8 % (38-53); Hemoglobin 11.9 g/dL (13.2-16.3); Mean Corpuscular Hemoglobin 26.6 pg (27-33); Mean Corpuscular Hgb Conc 35.2 g/dL (31-36); Mean Corpuscular Volume 75.6 fL (80-97); Mean Platelet Volume 8.1 fL (7.5-11.2); Platelet Count 283 10^3/uL (150-450); Red Blood Count 4.48 10^6/uL (4.06-5.63); Red Cell Distribution Width 14.5 % (12-17); White Blood Count 15.4 10^3/uL (3.6-10.2)
[2024-01-07 07:29] LABS: ABS Basophils 0.2 10^3/uL (0.0-0.1); ABS Lymphocytes 1.5 10^3/uL (1.0-4.8); ABS Monocytes 1.3 10^3/uL (0.0-1.1); ABS Neutrophils 12.4 10^3/uL (1.5-7.6); ABS Nucleated RBC 0.01 10^3/ul; Eosinophil % 0.2 %; Lymphocyte % 9.7 %; Nucleated Red Blood Cells % 0.1 %/100WBC (0.0-0.8)
[2024-01-07 07:36] LABS: Potassium 3.4 mmol/L (3.5-5.0)
[2024-01-07 07:37] LABS: Calcium 8.4 mg/dL (8.6-10.3); Creatinine, Serum 1.31 mg/dL (0.67-1.17); Magnesium 1.9 mg/dL (1.9-2.7); eGFR CKD-EPI 62.3 (>60)
[2024-01-07] MEDS: HYDROcodone/Acetamin 10/325 TAB (NF) PO PRN (07:57)
[2024-01-07] MEDS: Nystatin TOP POWDER 15 GM BTL TOPICAL SCH (07:58)
[2024-01-07] MEDS: Magnesium Sulfate 2 gm BAG 2 GM/50 ML BAG IVPB ONE (10:32)
[2024-01-07 11:07] LABS: C Reactive Protein 273.47 mg/L (<8.01)
[2024-01-07] MEDS: Adenosine 3 MG/ML 2 ml VIAL (6 mg) IV PUSH ONE (11:16)
[2024-01-07] MEDS: Potassium Chlor 20 meq TAB.ER PO ONE (11:45)
[2024-01-07] MEDS: Magnesium Sulfate IV 1GM/100ML 1 GM/100 ML BAG IV ONE (11:45)
[2024-01-07] MEDS ORDERED: .Amiodarone 24HR ONLY IV Protocol Order Note IV ONE (11:58)
[2024-01-07] MEDS: Amiodarone 150 mg IVPREMIX 150 MG/100 ML BAG IV ONE (12:32)
[2024-01-07] MEDS: Amiodarone 360 MG IVPREMIX 360 MG/200 ML BAG IV SCH ×2 (12:48→18:49)
[2024-01-07] MEDS ORDERED: Sulfur Hexaflouride MICROSPHR 25 MG VIAL ONE (14:41)
[2024-01-07 16:22] LABS: Calcium 8.1 mg/dL (8.6-10.3); Creatinine, Serum 1.29 mg/dL (0.67-1.17); Potassium 3.6 mmol/L (3.5-5.0); eGFR CKD-EPI 63.5 (>60)
[2024-01-07] MEDS: cefTRIAXone 2 gm/50 mL D5W 2 GM/50 ML BAG IV SCH (22:04)
[2024-01-08 05:11] LABS: ABS Basophils 0.2 10^3/uL (0.0-0.1); ABS Eosinophils 0.1 10^3/uL (0.0-0.5); ABS Monocytes 1.1 10^3/uL (0.0-1.1); ABS Neutrophils 10.7 10^3/uL (1.5-7.6); ABS Nucleated RBC 0.01 10^3/ul; Eosinophil % 0.7 %; Hematocrit 33.7 % (38-53); Hemoglobin 11.6 g/dL (13.2-16.3); Lymphocyte % 14.3 %; Mean Corpuscular Hemoglobin 26.2 pg (27-33); Mean Corpuscular Hgb Conc 34.5 g/dL (31-36); Mean Platelet Volume 8.1 fL (7.5-11.2); Platelet Count 326 10^3/uL (150-450); Red Blood Count 4.44 10^6/uL (4.06-5.63); Red Cell Distribution Width 14.9 % (12-17); White Blood Count 14.1 10^3/uL (3.6-10.2)
[2024-01-08 05:16] LABS: Activated Partial Thrombo Time 24.9 seconds (26.0-38.0); INR 1.19 (0.83-1.13)
[2024-01-08 05:39] LABS: Creatinine, Serum 1.36 mg/dL (0.67-1.17); Potassium 3.7 mmol/L (3.5-5.0); eGFR CKD-EPI 59.6 (>60)
[2024-01-08] MEDS: Amiodarone 400 mg TAB PO SCH (09:32)
[2024-01-08] MEDS ORDERED: Propofol 10 MG/ML 20 ML BTL ONE (11:54)
[2024-01-08] MEDS ORDERED: Lidocaine 2% PF 5 ML VIAL ONE (11:54)
[2024-01-08] MEDS ORDERED: Ondansetron 4 mg VIAL 2 MG/ML 2 ml VIAL ONE (11:54)
[2024-01-08] MEDS ORDERED: Dexmedetomidine 200 mcg/2 ml 2 ml VIAL (200 mcg) ONE (11:54)
[2024-01-08] MEDS ORDERED: Midazolam 2 mg/2 ml VIAL 1 mg/ml 2 ml VIAL (2 mg) ONE (11:54)
[2024-01-08] MEDS ORDERED: fentaNYL 100 mcg/2 ml 50 MCG/ML VIAL ONE (11:54)
[2024-01-08] MEDS ORDERED: Bupivacaine 0.5% SDV PF 30ML VIAL ONE (12:43)
[2024-01-08] MEDS ORDERED: Lidocaine 1% VIAL 10 MG/ML 30 ML VIAL ONE (13:37)
[2024-01-08] MEDS ORDERED: Phenylephrine 40 mcg/mL 10mL (400mcg) SYRINGE ONE (13:43)
[2024-01-08] MEDS: dilTIAZem 30 MG TAB PO ONE (23:22)
[2024-01-09 04:42] LABS: Hematocrit 34.2 % (38-53); Hemoglobin 11.7 g/dL (13.2-16.3); Mean Corpuscular Hemoglobin 26.4 pg (27-33); Mean Corpuscular Hgb Conc 34.2 g/dL (31-36); Mean Corpuscular Volume 77.3 fL (80-97); Mean Platelet Volume 8.1 fL (7.5-11.2); Platelet Count 344 10^3/uL (150-450); Red Blood Count 4.42 10^6/uL (4.06-5.63); Red Cell Distribution Width 14.7 % (12-17); White Blood Count 16.3 10^3/uL (3.6-10.2)
[2024-01-09 05:08] LABS: Calcium 7.8 mg/dL (8.6-10.3); Creatinine, Serum 1.69 mg/dL (0.67-1.17); eGFR CKD-EPI 45.9 (>60)
[2024-01-09] MEDS: Insulin GLARGINE 100 un/ml 10 ml VIAL SUBCUT ONE (09:56)
[2024-01-09] MEDS ORDERED: ceFAZolin 2 GM in NS PREMIX 2 GM/100 ML BAG IVPB SCH (10:00)
[2024-01-09] MEDS: ceFAZolin 2 GM PREMIX 2 GM/50 ML BAG IV SCH (11:02)
[2024-01-09] MEDS ORDERED: Midazolam 5 mg/5 ml VIAL 1 mg/ml 5 ml VIAL (5 mg) ONE (12:49)
[2024-01-09] MEDS ORDERED: Flumazenil 0.5 mg/5 ml 0.1 MG/ML 5 ml VIAL ONE (12:49)
[2024-01-09] MEDS ORDERED: Naloxone 0.4 mg VIAL 0.4 mg/ml 1 ml VIAL ONE (12:49)
[2024-01-09] MEDS ORDERED: fentaNYL 100 mcg/2 ml 50 MCG/ML VIAL ONE (12:49)
[2024-01-09] MEDS ORDERED: Propofol 10 MG/ML 20 ML BTL ONE (15:24)
[2024-01-09] MEDS ORDERED: Lidocaine 2% PF 5 ML VIAL ONE (15:24)
[2024-01-09] MEDS ORDERED: Dextrose 50% Syringe 50 ml 25 GM/50 ML SYRINGE IV PUSH PRN (21:28)
[2024-01-10 05:44] LABS: Hematocrit 33.1 % (38-53); Hemoglobin 11.3 g/dL (13.2-16.3); Mean Corpuscular Hemoglobin 26.3 pg (27-33); Mean Corpuscular Hgb Conc 34.1 g/dL (31-36); Mean Corpuscular Volume 77.2 fL (80-97); Mean Platelet Volume 7.8 fL (7.5-11.2); Platelet Count 409 10^3/uL (150-450); Red Blood Count 4.29 10^6/uL (4.06-5.63); Red Cell Distribution Width 14.9 % (12-17); White Blood Count 16.7 10^3/uL (3.6-10.2)
[2024-01-10 06:25] LABS: Calcium 7.7 mg/dL (8.6-10.3); Creatinine, Serum 1.35 mg/dL (0.67-1.17); Magnesium 2.1 mg/dL (1.9-2.7); Potassium 3.6 mmol/L (3.5-5.0); eGFR CKD-EPI 60.1 (>60)
[2024-01-10] MEDS: Insulin GLARGINE 100 un/ml 10 ml VIAL SUBCUT SCH (10:29)
[2024-01-11 08:42] LABS: ABS Basophils 0.1 10^3/uL (0.0-0.1); ABS Eosinophils 0.2 10^3/uL (0.0-0.5); ABS Lymphocytes 1.7 10^3/uL (1.0-4.8); ABS Monocytes 1.1 10^3/uL (0.0-1.1); ABS Neutrophils 12.6 10^3/uL (1.5-7.6); Hematocrit 35.2 % (38-53); Hemoglobin 11.8 g/dL (13.2-16.3); Lymphocyte % 10.7 %; Mean Corpuscular Hgb Conc 33.4 g/dL (31-36); Mean Corpuscular Volume 77.9 fL (80-97); Mean Platelet Volume 7.4 fL (7.5-11.2); Platelet Count 433 10^3/uL (150-450); Red Blood Count 4.52 10^6/uL (4.06-5.63); White Blood Count 15.6 10^3/uL (3.6-10.2)
[2024-01-11 08:54] LABS: Glucose Confirmatory 421 mg/dL (70-100)
[2024-01-11 09:03] LABS: Creatinine, Serum 1.26 mg/dL (0.67-1.17); Potassium 4.1 mmol/L (3.5-5.0); eGFR CKD-EPI 65.3 (>60)
[2024-01-11] MEDS: Insulin GLARGINE 100 un/ml 10 ml VIAL SUBCUT ONE (15:18)
[2024-01-11 18:09] LABS: Glucose Confirmatory 457 mg/dL (70-100)
[2024-01-11] MEDS ORDERED: Dextrose 50% Syringe 50 ml 25 GM/50 ML SYRINGE IV PUSH PRN (18:16)
[2024-01-12 08:38] LABS: Glucose Confirmatory 428 mg/dL (70-100)
[2024-01-12] MEDS: Insulin GLARGINE 100 un/ml 10 ml VIAL SUBCUT SCH (09:34)
[2024-01-12 12:53] LABS: Glucose Confirmatory 447 mg/dL (70-100)
[2024-01-12 16:44] LABS: Glucose Confirmatory 452 mg/dL (70-100)
[2024-01-12] MEDS: Insulin GLARGINE 100 un/ml 10 ml VIAL SUBCUT ONE (16:55)
[2024-01-12] MEDS ORDERED: Dextrose 50% Syringe 50 ml 25 GM/50 ML SYRINGE IV PUSH PRN (16:58)
[2024-01-13] MEDS ORDERED: Dextrose 50% Syringe 50 ml 25 GM/50 ML SYRINGE IV PUSH PRN (08:47)
[2024-01-13] MEDS: Insulin GLARGINE 100 un/ml 10 ml VIAL SUBCUT SCH ×2 (09:46→14:38)
[2024-01-13 12:01] LABS: ABS Basophils 0.2 10^3/uL (0.0-0.1); ABS Eosinophils 0.1 10^3/uL (0.0-0.5); ABS Lymphocytes 1.9 10^3/uL (1.0-4.8); ABS Monocytes 1.1 10^3/uL (0.0-1.1); ABS Neutrophils 12.9 10^3/uL (1.5-7.6); ABS Nucleated RBC 0.04 10^3/ul; Eosinophil % 0.8 %; Hematocrit 36.8 % (38-53); Hemoglobin 12.3 g/dL (13.2-16.3); Lymphocyte % 11.9 %; Mean Corpuscular Hemoglobin 25.9 pg (27-33); Mean Corpuscular Hgb Conc 33.3 g/dL (31-36); Mean Corpuscular Volume 77.8 fL (80-97); Nucleated Red Blood Cells % 0.2 %/100WBC (0.0-0.8); Platelet Count 494 10^3/uL (150-450); Red Blood Count 4.74 10^6/uL (4.06-5.63); White Blood Count 16.3 10^3/uL (3.6-10.2)
[2024-01-13 12:24] LABS: Glucose Confirmatory 448 mg/dL (70-100)
[2024-01-13 12:48] LABS: Albumin 2.5 g/dL (3.2-5.2); Albumin/Globulin Ratio 0.8 (1-3); Calcium 7.9 mg/dL (8.6-10.3); Creatinine, Serum 1.21 mg/dL (0.67-1.17); Direct Bilirubin 0.2 mg/dL (0.03-0.18); Globulin 3.3 g/dL (2-4); HDL Cholesterol 17.5 mg/dL; Indirect Bilirubin 0.2 mg/dL (0.3-1.0); Potassium 4.4 mmol/L (3.5-5.0); Total Bilirubin 0.4 mg/dL (0.2-1.0); Total Protein 5.8 g/dL (6.4-8.9); eGFR CKD-EPI 68.5 (>60)
[2024-01-13 12:51] LABS: TSH Ultra Thyroid Stim Horm 2.21 mcIU/mL (0.34-5.60)
[2024-01-13 12:54] LABS: Free T4 1.07 ng/dL (0.61-1.12)
[2024-01-13] MEDS: Lactated Ringers 1000 ml BAG 1,000 ML IV SCH (15:32)
[2024-01-13] MEDS: Fluticasone NASAL SPRAY 50MCG 16 gm SPRAY BTL BOTH NARES SCH (15:34)
[2024-01-13] MEDS: Metoprolol Tartrate 5 mg VIAL 5 ml VIAL (1 mg/ml) IV ONE (15:37)
[2024-01-13 18:05] LABS: Ferritin 348.7 ng/mL (24-336)
[2024-01-13 18:12] LABS: Glucose Confirmatory 421 mg/dL (70-100)
[2024-01-14] MEDS ORDERED: Insulin GLARGINE 100 un/ml 10 ml VIAL SUBCUT SCH (09:00)
[2024-01-14 09:07] LABS: ABS Basophils 0.1 10^3/uL (0.0-0.1); ABS Eosinophils 0.2 10^3/uL (0.0-0.5); ABS Lymphocytes 1.6 10^3/uL (1.0-4.8); ABS Nucleated RBC 0.01 10^3/ul; Eosinophil % 1.1 %; Hematocrit 33.2 % (38-53); Hemoglobin 11.3 g/dL (13.2-16.3); Lymphocyte % 10.7 %; Mean Corpuscular Hemoglobin 26.3 pg (27-33); Mean Corpuscular Hgb Conc 33.9 g/dL (31-36); Mean Corpuscular Volume 77.4 fL (80-97); Platelet Count 464 10^3/uL (150-450); Red Blood Count 4.29 10^6/uL (4.06-5.63); Red Cell Distribution Width 15.3 % (12-17); White Blood Count 14.8 10^3/uL (3.6-10.2)
[2024-01-14] MEDS: Insulin GLARGINE 100 un/ml 10 ml VIAL SUBCUT SCH ×2 (09:12→20:36)
[2024-01-14 09:37] LABS: C Reactive Protein 51.44 mg/L (<8.01); Calcium 8.1 mg/dL (8.6-10.3); Creatinine, Serum 1.09 mg/dL (0.67-1.17); Potassium 4.2 mmol/L (3.5-5.0); eGFR CKD-EPI 77.7 (>60)
[2024-01-14] MEDS ORDERED: Propofol 10 MG/ML 20 ML BTL ONE (10:30)
[2024-01-15 08:20] LABS: ABS Basophils 0.1 10^3/uL (0.0-0.1); ABS Eosinophils 0.2 10^3/uL (0.0-0.5); ABS Monocytes 0.9 10^3/uL (0.0-1.1); ABS Neutrophils 13.1 10^3/uL (1.5-7.6); Eosinophil % 1.1 %; Hematocrit 34.1 % (38-53); Hemoglobin 11.6 g/dL (13.2-16.3); Lymphocyte % 12.2 %; Mean Corpuscular Hemoglobin 26.4 pg (27-33); Mean Corpuscular Hgb Conc 34.1 g/dL (31-36); Mean Corpuscular Volume 77.6 fL (80-97); Mean Platelet Volume 6.9 fL (7.5-11.2); Platelet Count 475 10^3/uL (150-450); White Blood Count 16.3 10^3/uL (3.6-10.2)
[2024-01-15 09:14] LABS: Calcium 8.2 mg/dL (8.6-10.3); Creatinine, Serum 1.05 mg/dL (0.67-1.17); Magnesium 1.9 mg/dL (1.9-2.7); Potassium 4.8 mmol/L (3.5-5.0); eGFR CKD-EPI 81.3 (>60)
[2024-01-15] MEDS: Insulin GLARGINE 100 un/ml 10 ml VIAL SUBCUT SCH (12:28)
[2024-01-15] MEDS: Senna TAB 8.6 mg TAB PO PRN (18:18)
[2024-01-16 05:36] LABS: Hematocrit 32.2 % (38-53); Hemoglobin 10.7 g/dL (13.2-16.3); Mean Corpuscular Hemoglobin 26.2 pg (27-33); Mean Corpuscular Hgb Conc 33.4 g/dL (31-36); Mean Corpuscular Volume 78.3 fL (80-97); Mean Platelet Volume 6.9 fL (7.5-11.2); Platelet Count 464 10^3/uL (150-450); Red Blood Count 4.11 10^6/uL (4.06-5.63); White Blood Count 14.3 10^3/uL (3.6-10.2)
[2024-01-16 05:52] LABS: Calcium 8.2 mg/dL (8.6-10.3); Creatinine, Serum 1.14 mg/dL (0.67-1.17); Potassium 4.8 mmol/L (3.5-5.0); eGFR CKD-EPI 73.6 (>60)
[2024-01-16] MEDS ORDERED: Insulin GLARGINE 100 un/ml 10 ml VIAL SUBCUT SCH ×2 (09:00→10:50)
[2024-01-16] MEDS: Polyethylene Glycol 3350 17 GM PACKET PO PRN (09:34)
[2024-01-17] MEDS ORDERED: Magnesium Hydroxide LIQ 30 ML UDC PO PRN (13:12)
[2024-01-17] MEDS ORDERED: Senna TAB 8.6 mg TAB PO PRN (13:12)
[2024-01-17] MEDS ORDERED: Polyethylene Glycol 3350 17 GM PACKET PO PRN (13:12)
[2024-01-18] MEDS: Magnesium Hydroxide LIQ 30 ML UDC PO SCH (02:36)
[2024-01-20 09:11] LABS: ABS Basophils 0.1 10^3/uL (0.0-0.1); ABS Eosinophils 0.1 10^3/uL (0.0-0.5); ABS Lymphocytes 1.4 10^3/uL (1.0-4.8); ABS Monocytes 0.7 10^3/uL (0.0-1.1); ABS Neutrophils 10.5 10^3/uL (1.5-7.6); ABS Nucleated RBC 0.01 10^3/ul; Eosinophil % 0.6 %; Hematocrit 31.4 % (38-53); Hemoglobin 10.3 g/dL (13.2-16.3); Lymphocyte % 11.1 %; Mean Corpuscular Hgb Conc 32.7 g/dL (31-36); Mean Corpuscular Volume 79.3 fL (80-97); Mean Platelet Volume 6.7 fL (7.5-11.2); Nucleated Red Blood Cells % 0.1 %/100WBC (0.0-0.8); Platelet Count 392 10^3/uL (150-450); Red Blood Count 3.96 10^6/uL (4.06-5.63); Red Cell Distribution Width 15.8 % (12-17); White Blood Count 12.7 10^3/uL (3.6-10.2)
[2024-01-20 09:48] LABS: Calcium 8.3 mg/dL (8.6-10.3); Creatinine, Serum 1.11 mg/dL (0.67-1.17); Potassium 5.3 mmol/L (3.5-5.0)
[2024-01-20 18:01] LABS: Rapid COVID-19 Molecular Undetected (Undetected)
[2024-01-21 15:10] VITALS: BP 137/76
== END 2024-01-21 15:15 | DRG 710 ==
LOC: ED 13:45 → EDHOLD 21:26 → SUATTDRO 21:26 → ICU 01-07 15:27 → MEDTELE 01-09 18:13
PROVIDERS: ADMIT Internal Medicine; ATTEND Internal Medicine
PROC: O.CATEE (2024-01-09 14:00)
PROC: CARDVER (ICD-10-PCS; 2024-01-14 10:15)